=== PATIENT | male | born 2000 | race Hispanic/Latino ===

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

== ENCOUNTER 2018-05-12 18:10 | Emergency (ER) | payer OTHER ==
[2018-05-12 18:10] VITALS: BMI 22.4
[2018-05-12 18:38] VITALS: BP 119/78; PULSE 80; RESP 18; TEMP 99.1; O2SAT 100
[2018-05-12 20:18] LABS: BASO # 0.02 K/mm3 (0.0-2.0); BASO % 0.3 % (0.0-3.0); EOS # 0.1 (0.0-0.7); EOS % 1.7 % (1.5-5.0); GRAN # 4.47 (1.4-6.5); GRAN % 58.1 % (50.0-68.0); HEMOGLOBIN 14.7 g/dL (14.0-18.0); LYMPH # 2.6 (1.2-3.4); LYMPH % 33.7 % (22.0-35.0); MEAN CELL VOLUME 93.4 fl (80.0-105.0); MEAN CORPUSCULAR HEMOGLOBIN 32.2 pg (25.0-35.0); MEAN CORPUSCULAR HGB CONC 34.5 g/dl (31.0-37.0); MONO # 0.5 (0.1-0.6); MONO % 6.2 % (1.0-6.0); RBC 4.56 10^6/uL (3.5-6.1); RED CELL DISTRIBUTION WIDTH 11.9 % (11.5-14.5); WHITE BLOOD COUNT 7.7 10^3/uL (4.5-11.0)
[2018-05-12 20:26] LABS: INR 1.09; PARTIAL THROMBOPLASTIN TIME 31.4 Seconds (25.1-36.5); PROTHROMBIN TIME 12.5 SECONDS (9.4-12.5)
[2018-05-12 20:27] LABS: ALB/GLOB RATIO 1.5 (1.1-1.8); ALBUMIN 4.9 g/dL (3.0-4.8); ALT/SGPT 27 U/L (7-56); AST/SGOT 30 U/L (17-59); BLOOD UREA NITROGEN 10 mg/dL (7-21); CALCIUM 10.1 mg/dL (8.4-10.5); GFR NON-AFRICAN AMERICAN > 60
--- NOTE | 2018-05-12 20:32 | ED PDOC ---
Arrival/HPI - General Chief Complaint: ENT Problem Time Seen by Provider: 05/12/18 19:51 Historian: Patient - History of Present Illness Narrative History of Present Illness (Text): 05/12/18 20:32 18yr old male presents today with nose bleed to right nostril. pt states nose bleed started about 4 hours ago and bleeding persisted for 4 hours. pt states while in ER bleeding had stopped. pt denies fever/chills. no trauma or injury. no cp or sob. pt states he has had URI symptoms for a few days and was blowing his nose a lot and using flonase. pt denies dizziness or weakness. no other complaints. Past Medical History - Provider Review Nursing Documentation Reviewed: Yes - Travel History Have you recently traveled outside [place] w/in the past 3 mons?: No - Infectious Disease Hx of Infectious Diseases: None - Tetanus Immunization Tetanus Immunization: Unknown - Cardiac Hx Cardiac Disorders: No Hx Hypertension: No - Pulmonary Hx Tuberculosis: No - Neurological HX Cerebrovascular Accident: No Hx Seizures: No - HEENT Hx HEENT Disorder: No - Renal Hx Renal Disorder: No - Endocrine/Metabolic Hx Endocrine Disorders: No - Hematological/Oncological Hx Cancer: No - Integumentary Hx Dermatological Disorder: No - Musculoskeletal/Rheumatological Hx Musculoskeletal Disorders: No - Gastrointestinal Hx Gastrointestinal Disorders: No - Genitourinary/Gynecological Hx Sexually Transmitted Diseases: No - Psychiatric Hx Depression: No Hx Emotional Abuse: No Hx Physical Abuse: No Hx Substance Use: No - Anesthesia Hx Anesthesia: No - Suicidal Assessment Feels Threatened In Home Enviroment: No Family/Social History - Physician Review Nursing Documentation Reviewed: Yes Family/Social History: Unknown Family HX Smoking Status: Never Smoked Hx Alcohol Use: No Hx Substance Use: No Hx Substance Use Treatment: No Allergies/Home Meds Allergies/Adverse Reactions: Allergies No Known Allergies Allergy (Verified 12/01/16 16:23) Review of Systems - Review of Systems Constitutional: absent: Fatigue, Fevers Eyes: absent: Vision Changes, Eye Pain ENT: Epistaxis, Sinus Congestion. absent: Sore Throat Respiratory: absent: SOB, Cough Cardiovascular: absent: Chest Pain, Palpitations Gastrointestinal: absent: Abdominal Pain, Nausea, Vomiting Genitourinary Male: absent: Dysuria, Frequency Musculoskeletal: absent: Arthralgias, Back Pain, Neck Pain Skin: absent: Rash, Pruritis Neurological: absent: Headache, Dizziness Psychiatric: absent: Anxiety, Depression Physical Exam Vital Signs Reviewed: Yes Vital Signs Temp Pulse Resp BP Pulse Ox 05/12/18 18:34 99.1 F 80 18 119/78 100 Temperature: Afebrile Blood Pressure: Normal Pulse: Regular Respiratory Rate: Normal Appearance: Positive for: Well-Appearing, Non-Toxic, Comfortable Pain Distress: None Mental Status: Positive for: Alert and Oriented X 3 - Systems Exam Head: Present: Atraumatic Conjunctiva: Present: Normal Ears: Present: Normal, NORMAL TM Mouth: Present: Moist Mucous Membranes, Normal Lips, Normal Tounge. No: Drooling, Trismus Pharnyx: Present: Normal, Other (no blood). No: ERYTHEMA, EXUDATE, TONSILS ENLARGED, Peritonsilar Swelling, Uvular Deviation, Muffled/Hoarse Voice, Strider, Soft Palate/Uvular Edema Nose (External): Present: Atraumatic Nose (Internal): Present: Normal Inspection, No Active Bleeding, Clear Mucous. No: Edematous, Boggy, Septal Deviation, Septal Hematoma Neck: Present: Normal Range of Motion Respiratory/Chest: Present: Clear to Auscultation Cardiovascular: Present: Regular Rate and Rhythm, Normal S1, S2. No: Murmurs Upper Extremity: Present: Normal ROM Lower Extremity: Present: Normal ROM Neurological: Present: GCS=15, Speech Normal Skin: Present: Warm, Dry, Normal Color. No: Rashes Psychiatric: Present: Alert, Oriented x 3 Medical Decision Making ED Course and Treatment: 05/12/18 20:37 18yr old male presents today with nose bleeding in right nostril x 4 hours. bleeding has resolved in er. labs; wnl discussed results with patient; pt reassessment; still no bleeding; no indication for rhino rocket. Advised patient to follow-up with the ENT specialist within the next 2 days and return immediately if symptoms worsen persist or if new concerning symptoms develop Patient verbalizes understanding of discharge instructions and need for immediate followup. all aspects of this case were discussed the attending of record. Impression: Nosebleed follow up with the ENT Specialist within the next 2 days. return immediately if symptoms worsen,persist or if new symptoms develop. - Lab Interpretations Lab Results: 05/12/18 20:09 05/12/18 20:09 Lab Results 05/12/18 20:09: WBC 7.7, RBC 4.56, Hgb 14.7, Hct 42.6, MCV 93.4, MCH 32.2, MCHC 34.5, RDW 11.9, Plt Count 162, MPV 11.0, Gran % 58.1, Lymph % (Auto) 33.7, [place] % (Auto) 6.2 H, Eos % (Auto) 1.7, Baso % (Auto) 0.3, Gran # 4.47, Lymph # (Auto) 2.6, [place] # (Auto) 0.5, Eos # (Auto) 0.1, Baso # (Auto) 0.02 05/12/18 20:09: Sodium 141, Potassium 4.0, Chloride 102, Carbon Dioxide 29, [place] 15, BUN 10, Creatinine 1.0, Est GFR ( Amer) > 60, Est GFR (Non-Af Amer) > 60, Random Glucose 94, Calcium 10.1, Total Bilirubin 0.7, AST 30, ALT 27, Alkaline Phosphatase 65, Total Protein 8.1, Albumin 4.9 H, Globulin 3.2, Albumin/Globulin Ratio 1.5 05/12/18 20:09: PT 12.5, INR 1.09, APTT 31.4 Disposition/Present on Arrival - Present on Arrival Any Indicators Present on Arrival: No History of DVT/PE: No History of Uncontrolled Diabetes: No Urinary Catheter: No History of Decub. Ulcer: No History Surgical Site Infection Following: None - Disposition Have Diagnosis and Disposition been Completed?: Yes Diagnosis: Nosebleed Disposition: HOME/ ROUTINE Disposition Time: 20:28 Patient Plan: Discharge Patient Problems: Current Active Problems Problem Status Onset Nosebleed Acute Condition: GOOD Discharge Instructions (ExitCare): Nosebleeds (DC) Additional Instructions: follow up with the ENT Specialist within the next 2 days. return immediately if symptoms worsen,persist or if new symptoms develop. Referrals: Ganesh Vanegas MD [Primary Care Provider] - Follow up with primary Nino Cooper DO [Doctor Oste[facility]] - Follow up with primary Forms: [employer] (Sami), WORK NOTE, SCHOOL NOTE
== END 2018-05-12 20:40 | disposition home or self-care (01) ==
LOC: ED 18:10
DX: R04.0 Epistaxis (principal)